=== PATIENT | male | born 1935 | race Caucasian/White ===

== ENCOUNTER 2023-01-17 12:38 | Outpatient (RCR) | payer MEDICARE, OTHER, SELFPAY | END 2023-01-21 16:08 | disposition home or self-care (01) | LOC: HO.WCC 12:38 | PROVIDERS: PCP Internal Medicine; Visit Provider Physician Assistant | DX: S81.812D Laceration without foreign body, left lower leg, subsequent encounter (principal); I87.2 Venous insufficiency (chronic) (peripheral); I10 Essential (primary) hypertension; I48.91 Unspecified atrial fibrillation; J44.9 Chronic obstructive pulmonary disease, unspecified; W22.8XXD Striking against or struck by other objects, subsequent encounter; Z87.891 Personal history of nicotine dependence | CPT/HCPCS: 99212 ==